=== PATIENT | male | born 1975 | race Hispanic/Latino ===

== ENCOUNTER 2022-10-30 15:57 | Inpatient (IN) | payer OTHER ==
[~2022-10-30] VITALS: Ht 170.2 cm; Wt 85.5 kg
[2022-10-30 16:29] LABS: BASOPHILS % (AUTO) 0.2 % (0.0-5.0); EOSINOPHILS % (AUTO) 1.3 % (0.0-8.0); HEMATOCRIT 39.5 % (42-54); MEAN CORPUSCULAR HEMOGLOBIN 28.9 pg (27.0-33.0); MEAN CORPUSCULAR HGB CONC 33.9 g/dL (32.0-36.0); MEAN CORPUSCULAR VOLUME 85.3 fL (79-99); MONOCYTES % (AUTO) 10.9 % (3.0-13.0); NEUTROPHILS % (AUTO) 75.2 % (40.0-77.0); PLATELET COUNT (AUTO) 305 K/uL (130-400); RED BLOOD CELL COUNT(AUTO) 4.63 MIL/uL (4.50-6.20); RED CELL DISTRIBUTION WIDTH 12.2 % (11.0-15.5)
[2022-10-30 16:38] LABS: CREATININE 1.5 mg/dL (0.5-1.5); POTASSIUM 3.4 mmol/L (3.5-5.1)
[2022-10-30 16:42] LABS: ALBUMIN 2.5 g/dL (3.5-5.0); MAGNESIUM 1.6 mg/dL (1.80-2.40); TOTAL PROTEIN, SERUM 9.4 g/dL (6.0-8.3)
[2022-10-30 17:13] LABS: APPEARANCE,URINE CLOUDY (CLEAR); BILIRUBIN,URINE NEGATIVE (NEGATIVE); COLOR,URINE YELLOW (YELLOW); GLUCOSE, URINE (UA) 30 mg/dL (NEGATIVE); KETONES,URINE 5 mg/dL (NEGATIVE); LEUKOCYTE ESTERASE ,URINE NEGATIVE Leu/uL (NEGATIVE); NITRATE,URINE NEGATIVE (NEGATIVE); OCCULT BLOOD,URINE LARGE (NEGATIVE); PROTEIN,URINE 600 mg/dL (NEGATIVE); UROBILINOGEN,URINE 0.2 mg/dL (0.2-1.0)
[2022-10-30 17:15] LABS: B-TYPE NATRIURETIC PEPTIDE 133 pg/mL (0-100)
[2022-10-30 17:23] LABS: BACTERIA,URINE FEW /HPF (None Seen); MUCUS,URINE MOD LPF (None Seen); SQUAMOUS EPITHELIAL CELL,UR FEW /HPF (0-2)
[2022-10-30] MEDS ORDERED: IOHEXOL-350 75 ML VIAL IV ONE (18:06)
[2022-10-30] MEDS ORDERED: KETOROLAC 60 MG VIAL (30MG/ML) IM ONE (20:01)
[2022-10-30] MEDS ORDERED: LIDOCAINE 5% TOPICAL PATCH TP ONE (20:01)
[2022-10-30] MEDS ORDERED: CEFTRIAXONE 1G VIAL IVPB SCH (20:30)
[2022-10-30] MEDS ORDERED: AZITHROMYCIN 250 MG TABLET PO SCH (20:30)
[2022-10-30] MEDS ORDERED: ACETAMINOPHEN 325 MG TAB PO PRN (21:00)
[2022-10-30] MEDS ORDERED: LACTATED RINGERS 1000ML 1,983 ML IV SCH (21:00)
[2022-10-30] MEDS ORDERED: MAGNESIUM 2GM PREMIX 50ML 50 ML IV PRN (21:00)
[2022-10-30] MEDS ORDERED: MORPHINE 2 MG SYG IV PRN (21:00)
[2022-10-30] MEDS ORDERED: MORPHINE 4 MG SYG IV PRN (21:00)
[2022-10-30] MEDS ORDERED: GUAIFENESIN-DM 200/20 MG 10 ML PO PRN (21:00)
[2022-10-30] MEDS ORDERED: ONDANSETRON 4MG INJ IV PRN (21:00)
[2022-10-30] MEDS ORDERED: POTASSIUM CHLORIDE 20MEQ/100ML 100 ML IV PRN (21:00)
[2022-10-30] MEDS ORDERED: DOXYCYCLINE 100MG+NS 250ML 250 ML IV SCH (21:00)
[2022-10-30] MEDS ORDERED: CEFTRIAXONE 1G VIAL IV SCH (21:00)
[2022-10-30] MEDS ORDERED: POTASSIUM CHLORIDE 10% ELIXIR 20 MEQ/15 ML UDCUP PO PRN (21:00)
[2022-10-30] MEDS: FAMOTIDINE 20MG TAB PO SCH (21:34)
[2022-10-30] MEDS: KCL 20 MEQ ERTAB PO PRN (23:35)
[2022-10-30 23:55] VITALS: O2SAT 96
[2022-10-31] VITALS (14 sets, daily range): BP systolic 105–166; BP diastolic 78–105; PULSE 63–105; RESP 18–21; O2SAT 94–99
[2022-10-31] MEDS ORDERED: SODIUM CHLORIDE 3% FOR INHALATION 4 ML/AMP VIAL.NEB IH ONE ×2 (00:41→23:32)
[2022-10-31] MEDS: IPRATROPIUM/ALBUTEROL SULFATE 3 ML SOLUTION IH SCH ×5 (01:35→23:28)
[2022-10-31 04:55] LABS: BASOPHILS % (AUTO) 0.5 % (0.0-5.0); EOSINOPHILS % (AUTO) 3.5 % (0.0-8.0); HEMATOCRIT 34.6 % (42-54); MEAN CORPUSCULAR HEMOGLOBIN 29.1 pg (27.0-33.0); MEAN CORPUSCULAR HGB CONC 33.5 g/dL (32.0-36.0); MEAN CORPUSCULAR VOLUME 86.7 fL (79-99); MONOCYTES % (AUTO) 13.6 % (3.0-13.0); NEUTROPHILS % (AUTO) 64.8 % (40.0-77.0); PLATELET COUNT (AUTO) 268 K/uL (130-400); RED BLOOD CELL COUNT(AUTO) 3.99 MIL/uL (4.50-6.20); RED CELL DISTRIBUTION WIDTH 12.1 % (11.0-15.5); WHITE BLOOD COUNT (AUTO) 7.7 K/uL (4.8-10.8)
[2022-10-31 05:11] LABS: CREATININE 1.5 mg/dL (0.5-1.5); MAGNESIUM 1.9 mg/dL (1.80-2.40); PHOSPHORUS 3.6 mg/dL (2.5-4.9); POTASSIUM 4.1 mmol/L (3.5-5.1)
[2022-10-31] MEDS: MAGNESIUM 2GM PREMIX 50ML 50 ML IV SCH (05:59)
[2022-10-31] MEDS ORDERED: HYDRALAZINE 20MG/ML VIAL IV PRN (09:00)
[2022-10-31] MEDS: ENOXAPARIN SODIUM 40 MG/0.4 ML SYRINGE SQ SCH (10:13)
[2022-10-31] MEDS: FAMOTIDINE 20MG TAB PO SCH ×2 (10:13→20:14)
[2022-10-31] MEDS: AMLODIPINE 5 MG TAB PO SCH (10:13)
[2022-10-31] MEDS: LEVOFLOXACIN 750 MG/D5W 150ML BAG IV SCH (10:14)
[2022-10-31] MEDS: ACETAMINOPHEN 325 MG TAB PO PRN (20:15)
[2022-10-31] MEDS ORDERED: CEFTRIAXONE 1G VIAL IV SCH (21:00)
[2022-11-01] VITALS (12 sets, daily range): BP systolic 137–154; BP diastolic 83–92; PULSE 75–100; RESP 16–20; O2SAT 96–98
[2022-11-01] MEDS: ACETAMINOPHEN 325 MG TAB PO PRN ×2 (05:01→16:46)
[2022-11-01] MEDS: IPRATROPIUM/ALBUTEROL SULFATE 3 ML SOLUTION IH SCH ×4 (06:38→23:17)
[2022-11-01] MEDS: LEVOFLOXACIN 750 MG/D5W 150ML BAG IV SCH (08:30)
[2022-11-01] MEDS ORDERED: VANCOMYCIN PROTOCOL PER PHARMACY IV SCH (08:30)
[2022-11-01] MEDS: AMLODIPINE 5 MG TAB PO SCH (08:30)
[2022-11-01] MEDS ORDERED: VANCOMYCIN 1.75 GM/250 ML BAG 250 ML IV SCH (08:30)
[2022-11-01] MEDS: FAMOTIDINE 20MG TAB PO SCH ×2 (08:30→20:03)
[2022-11-01] MEDS: ENOXAPARIN SODIUM 40 MG/0.4 ML SYRINGE SQ SCH (08:30)
[2022-11-01] MEDS: CEFEPIME HCL 1 GM VIAL IVPB SCH ×2 (14:24→21:24)
[2022-11-01] MEDS ORDERED: SODIUM CHLORIDE 3% FOR INHALATION 4 ML/AMP VIAL.NEB IH ONE (18:26)
[2022-11-01] MEDS ORDERED: VANCOMYCIN 750MG VIAL ONE (19:58)
[2022-11-01] MEDS: VANCOMYCIN 750MG VIAL IVPB SCH (20:03)
[2022-11-01 23:02] LABS: HEPATITIS B CORE IGM ANTIBODY Non-Reactive (Negative); HEPATITIS B SURFACE ANTIGEN Non-Reactive (Nonreactive); HEPATITIS C ANTIBODY Non-Reactive (Nonreactive)
[2022-11-02] VITALS (13 sets, daily range): BP systolic 136–163; BP diastolic 78–92; PULSE 79–102; RESP 18–20; TEMP 99.6; O2SAT 95–97
[2022-11-02] MEDS: ACETAMINOPHEN 325 MG TAB PO PRN ×2 (00:14→16:58)
[2022-11-02 04:38] LABS: BASOPHILS % (AUTO) 0.6 % (0.0-5.0); HEMATOCRIT 35.8 % (42-54); LYMPHOCYTES % (AUTO) 16.8 % (21.0-51.0); MEAN CORPUSCULAR HEMOGLOBIN 28.7 pg (27.0-33.0); MEAN CORPUSCULAR HGB CONC 33.5 g/dL (32.0-36.0); MEAN CORPUSCULAR VOLUME 85.6 fL (79-99); MONOCYTES % (AUTO) 12.1 % (3.0-13.0); PLATELET COUNT (AUTO) 318 K/uL (130-400); RED BLOOD CELL COUNT(AUTO) 4.18 MIL/uL (4.50-6.20); RED CELL DISTRIBUTION WIDTH 11.9 % (11.0-15.5); WHITE BLOOD COUNT (AUTO) 6.4 K/uL (4.8-10.8)
[2022-11-02 05:08] LABS: ALBUMIN 1.9 g/dL (3.5-5.0); CREATININE 1.5 mg/dL (0.5-1.5); MAGNESIUM 2.2 mg/dL (1.80-2.40); PHOSPHORUS 3.7 mg/dL (2.5-4.9); POTASSIUM 3.7 mmol/L (3.5-5.1)
[2022-11-02] MEDS: CEFEPIME HCL 1 GM VIAL IVPB SCH ×3 (05:22→22:16)
[2022-11-02] MEDS: KCL 20 MEQ ERTAB PO PRN (05:25)
[2022-11-02] MEDS: IPRATROPIUM/ALBUTEROL SULFATE 3 ML SOLUTION IH SCH ×4 (07:20→23:51)
[2022-11-02] MEDS: LEVOFLOXACIN 750 MG/D5W 150ML BAG IV SCH (08:04)
[2022-11-02] MEDS: VANCOMYCIN 750MG VIAL IVPB SCH ×2 (08:05→20:52)
[2022-11-02] MEDS: AMLODIPINE 5 MG TAB PO SCH (08:05)
[2022-11-02] MEDS: FAMOTIDINE 20MG TAB PO SCH ×2 (08:05→20:52)
[2022-11-02] MEDS: ENOXAPARIN SODIUM 40 MG/0.4 ML SYRINGE SQ SCH (08:06)
[2022-11-02] MEDS ORDERED: SODIUM CHLORIDE FOR INHALATION 3 ML VIAL.NEB. IH ONE (11:06)
[2022-11-02] MEDS ORDERED: SODIUM CHLORIDE 3% FOR INHALATION 4 ML/AMP VIAL.NEB IH ONE (18:04)
[2022-11-02] MEDS: VANCOMYCIN KIT 1 GM/250 ML IV.KIT IV SCH (21:00)
[2022-11-03] VITALS (11 sets, daily range): BP systolic 131–155; BP diastolic 71–90; PULSE 72–107; RESP 17–20; O2SAT 96
[2022-11-03] MEDS: VANCOMYCIN KIT 1 GM/250 ML IV.KIT IV SCH ×2 (04:01→13:35)
[2022-11-03 05:29] LABS: BASOPHILS % (AUTO) 0.5 % (0.0-5.0); EOSINOPHILS % (AUTO) 13.5 % (0.0-8.0); HEMATOCRIT 33.3 % (42-54); LYMPHOCYTES % (AUTO) 16.2 % (21.0-51.0); MEAN CORPUSCULAR HEMOGLOBIN 28.8 pg (27.0-33.0); MEAN CORPUSCULAR HGB CONC 33.9 g/dL (32.0-36.0); MEAN CORPUSCULAR VOLUME 84.7 fL (79-99); MONOCYTES % (AUTO) 11.2 % (3.0-13.0); NEUTROPHILS % (AUTO) 58.2 % (40.0-77.0); PLATELET COUNT (AUTO) 351 K/uL (130-400); RED BLOOD CELL COUNT(AUTO) 3.93 MIL/uL (4.50-6.20); WHITE BLOOD COUNT (AUTO) 5.6 K/uL (4.8-10.8)
[2022-11-03 05:54] LABS: ALBUMIN 1.8 g/dL (3.5-5.0); CREATININE 1.5 mg/dL (0.5-1.5); POTASSIUM 3.8 mmol/L (3.5-5.1); TOTAL PROTEIN, SERUM 7.6 g/dL (6.0-8.3)
[2022-11-03] MEDS: IPRATROPIUM/ALBUTEROL SULFATE 3 ML SOLUTION IH SCH ×3 (06:08→18:00)
[2022-11-03] MEDS: CEFEPIME HCL 1 GM VIAL IVPB SCH ×3 (06:13→21:44)
[2022-11-03] MEDS: KCL 20 MEQ ERTAB PO PRN ×2 (06:14→09:02)
[2022-11-03] MEDS: LEVOFLOXACIN 750 MG/D5W 150ML BAG IV SCH (09:00)
[2022-11-03] MEDS: AMLODIPINE 5 MG TAB PO SCH (09:02)
[2022-11-03] MEDS: ENOXAPARIN SODIUM 40 MG/0.4 ML SYRINGE SQ SCH (09:03)
[2022-11-03] MEDS: FAMOTIDINE 20MG TAB PO SCH ×2 (09:03→21:44)
[2022-11-03] MEDS ORDERED: VANCOMYCIN HCL 1.25 GM/250 ML BAG IV SCH (21:00)
[2022-11-03] MEDS: VANCOMYCIN 1.25 GM/250 ML BAG 250 ML IV SCH (21:45)
[2022-11-04] VITALS (15 sets, daily range): BP systolic 148–167; BP diastolic 75–98; PULSE 84–109; RESP 18–20; O2SAT 93–97
[2022-11-04] MEDS: IPRATROPIUM/ALBUTEROL SULFATE 3 ML SOLUTION IH SCH ×5 (00:26→23:00)
[2022-11-04] MEDS: CEFEPIME HCL 1 GM VIAL IVPB SCH ×3 (05:03→21:06)
[2022-11-04 05:35] LABS: BASOPHILS % (AUTO) 0.4 % (0.0-5.0); EOSINOPHILS % (AUTO) 14.4 % (0.0-8.0); HEMATOCRIT 31.9 % (42-54); LYMPHOCYTES % (AUTO) 16.4 % (21.0-51.0); MEAN CORPUSCULAR HEMOGLOBIN 29.1 pg (27.0-33.0); MEAN CORPUSCULAR HGB CONC 33.9 g/dL (32.0-36.0); MONOCYTES % (AUTO) 11.6 % (3.0-13.0); NEUTROPHILS % (AUTO) 56.7 % (40.0-77.0); PLATELET COUNT (AUTO) 343 K/uL (130-400); RED BLOOD CELL COUNT(AUTO) 3.71 MIL/uL (4.50-6.20); RED CELL DISTRIBUTION WIDTH 11.9 % (11.0-15.5); WHITE BLOOD COUNT (AUTO) 7.6 K/uL (4.8-10.8)
[2022-11-04 05:58] LABS: ALBUMIN 1.7 g/dL (3.5-5.0); CREATININE 1.3 mg/dL (0.5-1.5); MAGNESIUM 1.8 mg/dL (1.80-2.40); TOTAL PROTEIN, SERUM 7.3 g/dL (6.0-8.3)
[2022-11-04] MEDS: FAMOTIDINE 20MG TAB PO SCH ×2 (08:25→21:04)
[2022-11-04] MEDS: VANCOMYCIN 1.25 GM/250 ML BAG 250 ML IV SCH ×2 (08:25→21:04)
[2022-11-04] MEDS: LEVOFLOXACIN 750 MG/D5W 150ML BAG IV SCH (08:25)
[2022-11-04] MEDS: MAGNESIUM 2GM PREMIX 50ML 50 ML IV SCH (08:25)
[2022-11-04] MEDS: ENOXAPARIN SODIUM 40 MG/0.4 ML SYRINGE SQ SCH (08:26)
[2022-11-04] MEDS: AMLODIPINE 5 MG TAB PO SCH (08:26)
[2022-11-04 15:14] LABS: HIV SCREEN 4TH GENERATION Preliminary Reactive (Non Reactive)
[2022-11-05] VITALS (13 sets, daily range): BP systolic 142–159; BP diastolic 83–85; PULSE 85–102; RESP 18–20; O2SAT 94–95
[2022-11-05] MEDS: CEFEPIME HCL 1 GM VIAL IVPB SCH ×3 (05:30→21:05)
[2022-11-05] MEDS: IPRATROPIUM/ALBUTEROL SULFATE 3 ML SOLUTION IH SCH ×3 (06:17→19:33)
[2022-11-05 08:00] LABS: HEMATOCRIT 33.2 % (42-54); MEAN CORPUSCULAR HEMOGLOBIN 28.6 pg (27.0-33.0); MEAN CORPUSCULAR HGB CONC 33.7 g/dL (32.0-36.0); MEAN CORPUSCULAR VOLUME 84.7 fL (79-99); RED BLOOD CELL COUNT(AUTO) 3.92 MIL/uL (4.50-6.20); RED CELL DISTRIBUTION WIDTH 12.1 % (11.0-15.5); WHITE BLOOD COUNT (AUTO) 7.7 K/uL (4.8-10.8)
[2022-11-05 08:14] LABS: ALBUMIN 1.8 g/dL (3.5-5.0); CREATININE 1.3 mg/dL (0.5-1.5); POTASSIUM 3.6 mmol/L (3.5-5.1); TOTAL PROTEIN, SERUM 7.7 g/dL (6.0-8.3)
[2022-11-05] MEDS: LEVOFLOXACIN 750 MG/D5W 150ML BAG IV SCH (08:50)
[2022-11-05] MEDS: AMLODIPINE 5 MG TAB PO SCH (08:50)
[2022-11-05] MEDS: FAMOTIDINE 20MG TAB PO SCH ×2 (08:51→21:05)
[2022-11-05] MEDS: ENOXAPARIN SODIUM 40 MG/0.4 ML SYRINGE SQ SCH (08:51)
[2022-11-05] MEDS: VANCOMYCIN 1.25 GM/250 ML BAG 250 ML IV SCH ×2 (10:45→21:06)
[2022-11-06] VITALS (7 sets, daily range): BP systolic 148–153; BP diastolic 82–87; PULSE 86–95; RESP 16–20; O2SAT 94–96
[2022-11-06] MEDS: IPRATROPIUM/ALBUTEROL SULFATE 3 ML SOLUTION IH SCH ×3 (00:01→11:07)
[2022-11-06] MEDS: CEFEPIME HCL 1 GM VIAL IVPB SCH (05:35)
[2022-11-06] MEDS: LEVOFLOXACIN 750 MG/D5W 150ML BAG IV SCH (08:18)
[2022-11-06] MEDS: FAMOTIDINE 20MG TAB PO SCH (09:11)
[2022-11-06] MEDS: AMLODIPINE 5 MG TAB PO SCH (09:11)
[2022-11-06] MEDS: VANCOMYCIN 1.25 GM/250 ML BAG 250 ML IV SCH (09:11)
[2022-11-06] MEDS: ENOXAPARIN SODIUM 40 MG/0.4 ML SYRINGE SQ SCH (09:12)
[2022-11-06] MEDS ORDERED: AMLO5TAB4 PO (11:31)
== END 2022-11-06 15:29 | disposition home or self-care (01) | DRG 871 ==
LOC: EDH 15:57 → EDHIP 15:58 → 2AH 23:42 → 4AH 11-01 18:10
PROVIDERS: ADMIT Internal Medicine; ATTEND Internal Medicine
DX: A41.9 Sepsis, unspecified organism (principal); I50.31 Acute diastolic (congestive) heart failure; J18.9 Pneumonia, unspecified organism; Z20.822 Contact with and (suspected) exposure to COVID-19; D68.59 Other primary thrombophilia; N17.9 Acute kidney failure, unspecified; J91.8 Pleural effusion in other conditions classified elsewhere; N30.00 Acute cystitis without hematuria; I11.0 Hypertensive heart disease with heart failure; Z21 Asymptomatic human immunodeficiency virus [HIV] infection status; E83.42 Hypomagnesemia; E87.6 Hypokalemia; Z75.3 Unavailability and inaccessibility of health-care facilities
CPT/HCPCS: 36415; 71045; 71270; 80048; 80053; 80202; 81001; 82378; 83605; 83735; 83880; 84100; 84145; 84484; 85025; 85027; 85378; 86316; 86360; 86480; 86592; 86701; 86704; 86705; 86706; 86707; 86812; 87040; 87071; 87088; 87116; 87205; 87206; 87340; 87350; 87385; 87389; 87390; 87486; 87520; 87536; 87635; 87797; 87804; 87880; 87900; 87901; 93005; 93306; 93356; 93970; 94640; 94664; 94667; 94668; G0378; J0692; J0696; J1650; J1885; J1956; J3370; J3475; J3490; J7120; Q9967; 3370

== ENCOUNTER 2024-01-05 21:38 | Emergency (ER) | payer BC ==
[~2024-01-05] VITALS: Ht 170.2 cm; Wt 77.1 kg
[~2024-01-05 21:38] MED LIST: AMLO5TAB4 PO
[2024-01-05 21:41] VITALS: BP 148/83; PULSE 98; RESP 20; TEMP 98.3
[2024-01-05] MEDS: cefTRIAXone 1G VIAL IM ONE (22:21)
[2024-01-05] MEDS ORDERED: SULF1TAB42 PO (22:28)
== END 2024-01-05 22:33 | disposition home or self-care (01) ==
LOC: EDH 21:38 → EEVIPCON 21:38 → EDH 22:33
DX: L02.811 Cutaneous abscess of head [any part, except face] (principal); E11.9 Type 2 diabetes mellitus without complications; I10 Essential (primary) hypertension; Z21 Asymptomatic human immunodeficiency virus [HIV] infection status; Z79.899 Other long term (current) drug therapy
CPT/HCPCS: 99284; 10060; 96372; J0696